=== PATIENT | female | born 1980 | race Caucasian/White ===

== ENCOUNTER 2020-11-01 07:50 | Emergency (ER) | payer BC ==
[~2020-11-01] VITALS: Ht 167.6 cm; Wt 107.0 kg
[2020-11-01 07:59] VITALS: BP 112/68
== END 2020-11-01 10:01 | disposition home or self-care (01) ==
LOC: ER 07:51
DX: M79.604 Pain in right leg (principal); M79.89 Other specified soft tissue disorders; Z87.891 Personal history of nicotine dependence; Z88.0 Allergy status to penicillin
CPT/HCPCS: 93971; 99284